=== PATIENT | female | born 1930 | race Caucasian/White ===

== ENCOUNTER 2016-06-13 11:41 | Emergency (ER) | payer MEDICARE, BC ==
--- NOTE | 2016-06-16 13:53 | ER ---
ADMIT: 06/13/2016 RM/LOC: ER [facility] MR#: [id number] [address] [id number] [place] [address] [place] [id number] Emergency Room Report SEX: F AGE: 85 : 1930 DATE: 06/13/2016 ADDENDUM: An 85-year-old female, who started primidone last night, began having nausea and vomiting this morning. She has had several episodes of dry heaves but has not actually been vomiting much in the way of volume. She has had no other symptoms. She was given Zofran here and feels quite a bit better and was able to tolerate p.o. here. She is discharged home to stop taking the primidone, use the Zofran as needed for nausea. She is to follow up with Dr. Watters's office early this week to discuss any medication that she might need other than the primidone. DIAGNOSES: 1. Nausea and vomiting. 2. Medication reaction. Ze Curry MD/ leda JOB #: [id number] CC: Luther Gill MD, Attending Physician
== END 2016-06-13 15:05 | disposition home or self-care (01) ==
LOC: ER 11:41
DX: T42.6X5A Adverse effect of other antiepileptic and sedative-hypnotic drugs, initial encounter (principal); R11.2 Nausea with vomiting, unspecified; I10 Essential (primary) hypertension; E78.00 Pure hypercholesterolemia, unspecified; Z98.890 Other specified postprocedural states

== ENCOUNTER 2016-06-19 11:16 | Day surgery (SDC) | payer MEDICARE, BC ==
[~2016-06-19] VITALS: Ht 162.6 cm; Wt 75.3 kg
== END 2016-06-19 14:45 | disposition home or self-care (01) ==
LOC: RAD.S 11:16 → SSS 13:00 → EDSTATUS 13:00 → RAD.S 13:00
DX: R27.0 Ataxia, unspecified (principal); H70.91 Unspecified mastoiditis, right ear; Z79.899 Other long term (current) drug therapy; Z79.52 Long term (current) use of systemic steroids; Z88.0 Allergy status to penicillin; Z88.1 Allergy status to other antibiotic agents; Z88.2 Allergy status to sulfonamides